=== PATIENT | female | born 1970 | race African-American/Black ===

== ENCOUNTER → 2020-07-28 12:52 | Outpatient (BNVA) | payer MEDICARE, MEDICAID, SELFPAY | PROVIDERS: Visit Provider Physician Assistant | DX: M17.11 Unilateral primary osteoarthritis, right knee (principal) | CPT/HCPCS: 99213 ==

== ENCOUNTER 2020-10-14 14:00 | Outpatient (RCR) | payer MEDICARE, MEDICAID, SELFPAY ==
--- NOTE | 2020-10-26 08:23 | MHC.PT.DC ---
[facility] [place] [facility] [place] [facility] [place] Office [address] Johana Payton 140 [facility] [phone] F: [phone] F: [phone] F: [phone] F: [phone] Physical Therapy Discharge Report Diagnosis: Primary Osteoarthritis of Right Knee Date of Surgery: Date of Evaluation: 09/09/20 Date of Discharge: 10/26/20 Treatments to Date: 7 Cancellations to Date: 0 No Shows to Date: 0 Discharge Status: Improved Function Patient Elected to Stop Discharge Summary: Pt will be going to [place] for over a month and will continue with HEP there. D/c at this time. Electronically signed by: Miracle Grant PT Please sign and return to therapist. Thank you for your referral.
== END 2020-10-26 08:24 | disposition other institution (70) ==
LOC: HO.PT 14:00
PROVIDERS: Visit Provider Physician Assistant
DX: M17.11 Unilateral primary osteoarthritis, right knee (principal)
CPT/HCPCS: 97035; 97110; 97162

== ENCOUNTER 2020-12-08 14:56 | Outpatient (REF) | payer MEDICARE, MEDICAID, SELFPAY | END 2020-12-08 14:57 | disposition home or self-care (01) | LOC: HO.LAB 14:56 | PROVIDERS: Visit Provider Internal Medicine | DX: Z20.822 Contact with and (suspected) exposure to COVID-19 (principal) | CPT/HCPCS: 36415; C9803; U0003; U0005 ==

== ENCOUNTER 2021-03-13 10:02 | Outpatient (REF) | payer MEDICARE, MEDICAID, SELFPAY ==
--- NOTE | ~2021-03-13 | MM_ITS ---
EXAMINATION: MM SCREENING DIGITAL BREAST TOMOSYNTHESIS, BILATERAL CLINICAL INFORMATION: Screening. Asymptomatic. The lifetime risk of breast cancer based on the Tyrer-Cuzick Model is 9%. COMPARISON: Mammography: 12/18/2018, 07/11/2016 TECHNIQUE: Digital breast tomosynthesis is performed in both the craniocaudal and mediolateral oblique views along with computer-aided detection (CAD). Synthesized 2D images are generated from the tomosynthesis. Additional exaggerated right CC view is provided. FINDINGS: There are scattered areas of fibroglandular density (ACR BI-RADS breast composition Category b). There are no significant masses, abnormal calcifications, or other abnormalities. Breast tissue composition borders on predominantly fatty. The axilla and skin contours are unremarkable. MM/MM tomosynthesis screening BI IMPRESSION: No mammographic evidence of malignancy. ASSESSMENT: BI-RADS 1: Negative RECOMMENDATION: Routine annual mammography screening. This patient's information was entered into a reminder system with a target due date for their next mammogram.
== END 2021-03-13 10:03 | disposition home or self-care (01) ==
LOC: HO.MAMMO 10:02
PROVIDERS: Visit Provider Internal Medicine
DX: Z12.31 Encounter for screening mammogram for malignant neoplasm of breast (principal)
CPT/HCPCS: 77063; 77067

== ENCOUNTER 2021-04-03 12:04 | Emergency (ER) | payer MEDICARE, MEDICAID, SELFPAY ==
--- NOTE | ~2021-04-03 | CT_ITS ---
EXAMINATION: CT ABDOMEN AND PELVIS WITH CONTRAST CLINICAL INFORMATION: Right lower quadrant pain, nausea and vomiting COMPARISON: None TECHNIQUE: Multidetector volumetric images were obtained from the superior aspect of the liver through the pubic symphysis following administration 85 mL of Omnipaque 350 intravenous contrast. Sagittal and coronal reformatted images were obtained on the technologist's workstation. Oral contrast: Yes This CT examination was performed using dose optimization techniques as appropriate, variously including the following: *Automated exposure control *Adjustment of mA and/or kV according to patient size (this includes techniques or standardized protocols for targeted exams where dose is matched to indication/reason for exam; i.e. extremities or head) *Use of iterative reconstruction technique DLP: 792 mGy-cm FINDINGS: LUNG BASES: The visualized lung bases are clear. There is a trace pericardial effusion or thickening. LIVER, GALLBLADDER, AND BILIARY TREE: The liver is normal in size, shape, and attenuation. There are several low-attenuation liver lesions probably representing cysts. The largest is a bilobed 2 cm cyst in the dome of the liver. The gallbladder is unremarkable. There is no biliary duct dilatation. PANCREAS: Unremarkable. SPLEEN: Unremarkable. ADRENAL GLANDS: Unremarkable. KIDNEYS AND URETERS: There is mild right-sided hydronephrosis and ureteral dilatation. The right ureter is dilated down to the bladder. There is question of a tiny 1 mm right UVJ stone for example axial image 648 series 4 and coronal reconstructed image 53 and sagittal reconstructed image 78. There is stranding of the right perinephric fat. There are asymmetric nephrograms. Differential would include backflow of urine related to obstruction and infection/pyelonephritis. The left kidney is unremarkable. BLADDER: Unremarkable. GASTROINTESTINAL TRACT: The small and large bowel are unremarkable. The appendix is unremarkable. ABDOMINAL WALL: No significant hernia is appreciated. LYMPH NODES: Normal. VASCULAR: Unremarkable. PELVIC VISCERA: Unremarkable. OSSEOUS STRUCTURES: Unremarkable. CT/CT abdomen pelvis w con IMPRESSION: Mild right hydronephrosis and ureteral dilatation from question mall 1 mm right UVJ stone. Stranding of the right perinephric fat and asymmetric nephrograms. Differential would include backflow of urine related to obstruction and infection/pyelonephritis. Clinical correlation recommended. Liver cysts.
[2021-04-03 12:16] VITALS: BP 128/80; PULSE 96; RESP 16; TEMP 36.6; O2SAT 100
--- NOTE | 2021-04-03 14:02 | ED_ITS ---
HPI - Abdominal Pain General Chief Complaint: Abdominal Pain Stated Complaint: abd pain Time Seen by Provider: 04/03/21 12:49 Source: patient Mode of arrival: ambulatory Limitations: no limitations History of Present Illness HPI narrative: 50-year-old female with a past medical history of anxiety disorder, depression, bipolar and osteoarthritis presenting to the ED with complaints of sudden onset of nausea/vomiting with right lower quadrant abdominal pain after she drank some orange juice prior to arrival. Denies any fevers, dizziness, blood in her emesis, chest pain or shortness of breath, paresthesias, radiation of the abdominal pain, back pain, dysuria, hematuria, abnormal vaginal discharge, recent travel or sick contacts or possible bad food exposure. MD elicited complaint: abdominal pain Pertinent past history: none Onset (ago): minute(s) (Prior to arrival) Pain Consistency: constant Location: RLQ Severity: moderate Quality: aching Radiation: none Migration to: no migration Exacerbating factors: nothing Relieving factors: nothing Associated symptoms: nausea and vomiting Related Data Previous Rx's Medication Instructions Recorded naproxen 500 mg tablet 500 mg PO BID #1 tab 07/28/20 leg brace #1 ea 07/30/20 silver sulfadiazine 1 % topical 1 appl TOPICAL BID PRN #50 g 10/13/20 cream acetaminophen [Tylenol Extra 1,000 mg PO QID PRN #14 tab 04/03/21 Strength] cefdinir 300 mg PO BID 7 Days #14 cap 04/03/21 ibuprofen 800 mg PO Q8H PRN #14 tab 04/03/21 ondansetron HCl [Zofran] 4 mg PO Q8H PRN #14 tab 04/03/21 oxycodone 5 mg PO BID PRN #10 tab 04/03/21 tamsulosin [Flomax] 0.4 mg PO DAILY 5 Days #5 cap 04/03/21 Allergies Allergy/AdvReac Type Severity Reaction Status Date / Time No Known Allergies Allergy Verified 07/28/20 13:00 Review of Systems Review of Systems Constitutional : No Weight loss, No Fever, No Chills, No Night Sweats, No Fatigue, NoMalaise ENT/Mouth: No ear pain, No sore throat, No Difficulty swallowing Cardiovascular : No Chest Pain, No SOB, No Dyspnea on Exertion, No Orthopnea, NoEdema, No Palpitations Respiratory : No Cough, No Sputum, No Wheezing, No Dyspnea Gastrointestinal : Positive nausea/vomiting/abdominal pain, No Diarrhea, No blood streaked emesis, No coffee-ground emesis, No gross hematemesis, No blood streak stool, No gross hematochezia, No Melena Genitourinary : No irregular bleeding, No Dysuria, No Urinary Frequency, No Hematuria,No Urinary Incontinence, No Urgency, No Flank Pain Musculoskeletal : No joint pain, No Myalgias, No Joint Swelling Skin : No Skin Lesions, No rash Neuro : No Weakness, No Numbness, No Paresthesias, No Loss of Consciousness, NoDizziness, No Headache Psych : No Social Issues, Heme/Lymph: No Bruising, No Bleeding,No Lymphadenopathy Endocrine : No Polyuria, No Polydipsia, No Temperature Intolerance Yes all other systems are reviewed and are negative Physical Exam Vital Signs: Vital Signs: Last Vital Signs Temp 98 F 04/03/21 12:16 Pulse 96 04/03/21 12:16 Resp 16 04/03/21 12:16 BP 128/80 04/03/21 12:16 Pulse Ox 100 04/03/21 12:16 Body Mass Index 0.0 vital signs have been reviewed as normal and appeared to be correct. Blood pressure normal. Heart rate normal. Respiration rate normal. Temperature normal. Oxygen saturation normal. Appearance: Alert. Oriented X3. No acute distress. Head: Normal external exam. Normocephalic. Eyes: PERRLA. EOMI. Conjunctiva and sclera normal. Eyelids normal. ENT: Pharynx normal. Uvula midline. Moist mucous membranes. Neck: Normal inspection. Neck supple. FROM. No adenopathy. No meningeal signs. CVS: Normal heart rate and rhythm. Heart sound normal. No murmurs noted. Pulses normal throughout. Respiratory: No respiratory distress. Painless inspiration. Breath sounds normal. No wheezes/rales/rhonchi noted. Chest nontender. No accessory muscle usage noted or decreased air movement noted. Abdomen: Soft and mild tenderness to palpation to right lower quadrant. Nondistended. No guarding. No rigidity. Bowel sounds normal in all 4 quadrants. No distention noted. No organomegaly noted. No visible injury noted. No rebound tenderness. Negative Rovsing sign. Negative obturator's sign. Negative psoas sign. Negative Parker sign. Back: No CVA tenderness. Full range of motion noted. Skin: Skin warm and dry. Normal skin color. Normal skin turgor. No ra shes/lesions/lacerations noted. Extremities: Extremities exhibit normal range of motion. Extremities nontender. Neuro: Oriented X 3. No motor deficit. No sensory deficit. Reflexes normal. Normal steady gait. Course Course Course Narrative: 13:30pm - 50-year-old female with a past medical history of anxiety disorder, depression, bipolar and osteoarthritis presenting to the ED with complaints of sudden onset of nausea/vomiting with right lower quadrant abdominal pain after she drank some orange juice prior to arrival. Plan: Labs, UA, CT scan of abdomen pelvis with IV contrast. Provide a L IV fluids, 30 mg of Toradol and 4 mg of Zofran and re-evaluate Reevaluation(s) Reevaluation #1: - labs returned all within normal limits. - CT scan abdomen and pelvis revealed mild right hydronephrosis and ureteral dilation from questioning small 1 mm right UVJ stone. Stranding of right perinephric fat and asymmetric nephrograms. Differential would include backflow of urine related to obstruction and infection/pyelonephritis. Clinical correlation recommended. Liver cysts. - therefore sent the patient to the bathroom to give me a urine then will consult with Urology based on urine culture Time: 15:48 Reevaluation #2: - UA with +2 leukocytes therefore consulted with Dr. Thakkar and he recommended sending the patient home with antibiotics and symptomatic tx along with Flomax instructions follow up as outpatient and to return if any new or worsening symptoms. Patient understands and agrees with this plan. Time: 16:53 MDM - Abdominal Pain Medical Records Attestation: I reviewed the patient's medical records. Lab Data Attestation: I reviewed the patient's lab results. Result diagrams: 04/03/21 14:13 04/03/21 14:13 Labs: Lab Results 04/03/21 04/03/21 04/03/21 Range/Units 14:13 14:13 14:13 WBC 7.3 (4.8-10.8) X10*3/uL RBC 4.66 (4.20-5.50) X10*6/uL Hgb 12.4 (12.0-16.0) g/dl Hct 38.7 (37-47) % MCV 83.0 (80-98) fL MCH 26.6 L (27.0-33.0) pg MCHC 32.0 (31.0-35.0) g/dl RDW 13.8 (11.0-16.0) % Plt Count 285 (160-400) X10*3/uL MPV 9.4 (9.4-12.3) fL Immature Gran % (Auto) 0.4 (0.0-0.4) % Neut % (Auto) 76.2 H (45-73) % Lymph % (Auto) 17.7 L (20-40) % [place] % (Auto) 5.5 (2-11) % Eos % (Auto) 0.1 (0-4) % Baso % (Auto) 0.1 (0-2) % Lymph # (Auto) 1.3 (1.2-4.9) X10*3/uL [place] # (Auto) 0.4 (0.1-1.2) X10*3/uL Eos # (Auto) 0.0 (0.0-0.4) X10*3/uL Baso # (Auto) 0.0 (0.0-0.2) X10*3/uL Abs Immat Gran (auto) 0.03 (0.00-0.03) X10*3/uL Absolute Neuts (auto) 5.5 (2.0-8.3) X10*3/uL Absolute Nucleated RBC 0.000 (0.0-0.012) X10*3/uL Nucleated RBC % (auto) 0.0 (0.0-0.2) /100WBC PT 11.0 (10.8-13.0) SEC INR 0.9 (0.9-1.1) Sodium 143 (135-145) mmol/L Potassium 4.2 (3.3-5.1) mmol/L Chloride 105 (96-108) mmol/L Carbon Dioxide 32 H (22-29) mmol/L Anion Gap 10 L (12-20) BUN 14 (9-16) mg/dL Creatinine 1.07 (0.5-1.4) mg/dL Estim Creat Clear Calc 91.7 Estimated GFR 54 Random Glucose 87 (60-115) mg/dL Calcium 9.2 (8.4-10.2) mg/dL Magnesium 2.3 (1.6-2.6) mg/dL Total Bilirubin 0.3 (0.0-1.0) mg/dL AST 16 (5-31) U/L ALT 10 (0-31) U/L Alkaline Phosphatase 71 (39-117) U/L Total Protein 7.1 (6.5-8.0) g/dL Albumin 4.4 (3.5-5.0) g/dL Urine Color Urine Appearance Urine pH (5.0-8.0) Ur Specific [place] (1.005-1.025) Urine Protein (NEG-TRACE) MG/DL Urine Glucose (UA) (NEG) MG/DL Urine Ketones (NEG) MG/DL Urine Blood (NEG) Urine Nitrite (NEG) Ur Leukocyte Esterase (NEG) 04/03/21 Range/Units 16:03 WBC (4.8-10.8) X10*3/uL RBC (4.20-5.50) X10*6/uL Hgb (12.0-16.0) g/dl Hct (37-47) % MCV (80-98) fL MCH (27.0-33.0) pg MCHC (31.0-35.0) g/dl RDW (11.0-16.0) % Plt Count (160-400) X10*3/uL MPV (9.4-12.3) fL Immature Gran % (Auto) (0.0-0.4) % Neut % (Auto) (45-73) % Lymph % (Auto) (20-40) % [place] % (Auto) (2-11) % Eos % (Auto) (0-4) % Baso % (Auto) (0-2) % Lymph # (Auto) (1.2-4.9) X10*3/uL [place] # (Auto) (0.1-1.2) X10*3/uL Eos # (Auto) (0.0-0.4) X10*3/uL Baso # (Auto) (0.0-0.2) X10*3/uL Abs Immat Gran (auto) (0.00-0.03) X10*3/uL Absolute Neuts (auto) (2.0-8.3) X10*3/uL Absolute Nucleated RBC (0.0-0.012) X10*3/uL Nucleated RBC % (auto) (0.0-0.2) /100WBC PT (10.8-13.0) SEC INR (0.9-1.1) Sodium (135-145) mmol/L Potassium (3.3-5.1) mmol/L Chloride (96-108) mmol/L Carbon Dioxide (22-29) mmol/L Anion Gap (12-20) BUN (9-16) mg/dL Creatinine (0.5-1.4) mg/dL Estim Creat Clear Calc Estimated GFR Random Glucose (60-115) mg/dL Calcium (8.4-10.2) mg/dL Magnesium (1.6-2.6) mg/dL Total Bilirubin (0.0-1.0) mg/dL AST (5-31) U/L ALT (0-31) U/L Alkaline Phosphatase (39-117) U/L Total Protein (6.5-8.0) g/dL Albumin (3.5-5.0) g/dL Urine Color STRAW Urine Appearance CLEAR Urine pH 7.0 (5.0-8.0) Ur Specific [place] 1.010 (1.005-1.025) Urine Protein NEG (NEG-TRACE) MG/DL Urine Glucose (UA) NEG (NEG) MG/DL Urine Ketones NEG (NEG) MG/DL Urine Blood NEG (NEG) Urine Nitrite NEG (NEG) Ur Leukocyte Esterase 2+ H (NEG) Imaging Data CT scan of abdomen pelvis with IV contrast: Attestation: I personally reviewed and interpreted this imaging study as follows: Radiologist's impression: FINDINGS: LUNG BASES: The visualized lung bases are clear. There is a trace pericardial effusion or thickening. LIVER, GALLBLADDER, AND BILIARY TREE: The liver is normal in size, shape, and attenuation. There are several low-attenuation liver lesions probably representing cysts. The largest is a bilobed 2 cm cyst in the dome of the liver. The gallbladder is unremarkable. There is no biliary duct dilatation. PANCREAS: Unremarkable. SPLEEN: Unremarkable. ADRENAL GLANDS: Unremarkable. KIDNEYS AND URETERS: There is mild right-sided hydronephrosis and ureteral dilatation. The right ureter is dilated down to the bladder. There is question of a tiny 1 mm right UVJ stone for example axial image 648 series 4 and coronal reconstructed image 53 and sagittal reconstructed image 78. There is stranding of the right perinephric fat. There are asymmetric nephrograms. Differential would include backflow of urine related to obstruction and infection/pyelonephritis. The left kidney is unremarkable. BLADDER: Unremarkable. GASTROINTESTINAL TRACT: The small and large bowel are unremarkable. The appendix is unremarkable. ABDOMINAL WALL: No significant hernia is appreciated. LYMPH NODES: Normal. VASCULAR: Unremarkable. PELVIC VISCERA: Unremarkable. OSSEOUS STRUCTURES: Unremarkable. CT/CT abdomen pelvis w con IMPRESSION: Mild right hydronephrosis and ureteral dilatation from question mall 1 mm right UVJ stone. Stranding of the right perinephric fat and asymmetric nephrograms. Differential would include backflow of urine related to obstruction and infection/pyelonephritis. Clinical correlation recommended. Liver cysts. Discharge Plan Discharge Clinical Impression: UTI (urinary tract infection), Urolithiasis, Hydronephrosis, Benign liver cyst Patient Disposition: Home, Self-Care Instructions: Hydronephrosis (ED), Ureteral Stones (ED), Urinary Tract Infection in Older Adults (ED) Prescriptions: New ondansetron HCl [Zofran] 4 mg tablet 4 mg PO Q8H PRN (Reason: nausea and vomiting) Qty: 14 RF: 0 tamsulosin [Flomax] 0.4 mg capsule 0.4 mg PO DAILY 5 Days Qty: 5 RF: 0 cefdinir 300 mg capsule 300 mg PO BID 7 Days Qty: 14 RF: 0 ibuprofen 800 mg tablet 800 mg PO Q8H PRN (Reason: pain) Qty: 14 RF: 0 oxycodone 5 mg tablet 5 mg PO BID PRN (Reason: pain) Qty: 10 RF: 0 acetaminophen [Tylenol Extra Strength] 500 mg tablet 1,000 mg PO QID PRN (Reason: fever or pain) Qty: 14 RF: 0 No Action (DME) Knee Support Brace Misc See Rx Instructions .ROUTE .MEDSUPPLY Qty: 1 RF: 0 silver sulfadiazine 1 % cream 1 appl topical BID PRN (Reason: wound healing) Qty: 50 RF: 1 naproxen 500 mg tablet 500 mg PO BID Qty: 1 RF: 0 Referrals: Allen Thakkar III, MD [Physician] - 2 days Allen Thakkar III, MD [Physician] - 2 days Print Language: Nepali [facility] Past Medical History Attestation statement: The following information was validated with the patient. Medical History Head injury Social History Social History Alcohol intake: never Patient Tobacco Use Status: Never used Tobacco Use of substances other than those prescribed or required for medical reasons: No Advance Directives: Yes Advance Directives Information Provided: Yes Advance Directives on File: No Patient : No
[2021-04-03 14:18] LABS: Basophils Percent Auto 0.1 % (0-2); Eosinophils Percent Auto 0.1 % (0-4); Hematocrit 38.7 % (37-47); Hemoglobin 12.4 g/dl (12.0-16.0); Imm Gran Abs Auto 0.03 X10*3/uL (0.00-0.03); Imm Gran Pct Auto 0.4 % (0.0-0.4); Lymphocytes Absolute Auto 1.3 X10*3/uL (1.2-4.9); Lymphocytes Percent Auto 17.7 % (20-40); MANUAL DIFF FLAG NO; Mean Corpuscular Hemoglobin 26.6 pg (27.0-33.0); Mean Platelet Volume 9.4 fL (9.4-12.3); Monocytes Absolute Auto 0.4 X10*3/uL (0.1-1.2); Monocytes Percent Auto 5.5 % (2-11); Neutrophils Absolute Auto 5.5 X10*3/uL (2.0-8.3); Neutrophils Percent Auto 76.2 % (45-73); Platelet Count 285 X10*3/uL (160-400); Red Blood Count 4.66 X10*6/uL (4.20-5.50); Red Cell Distribution Width 13.8 % (11.0-16.0); White Blood Count 7.3 X10*3/uL (4.8-10.8)
[2021-04-03] MEDS: 0.9 % Sodium Chloride 1,000 ML 999 ML IVCONT (14:19)
[2021-04-03] MEDS: ondansetron HCL 4 MG/2 ML VIAL IVPUSH (14:21)
[2021-04-03] MEDS: Ketorolac Tromethamine 30 MG/ML VIAL IVPUSH (14:22)
[2021-04-03 14:24] LABS: INTERNATIONAL NORM RATIO 0.9 (0.9-1.1)
[2021-04-03 14:47] LABS: Alanine Aminotransferase 10 U/L (0-31); Albumin Level 4.4 g/dL (3.5-5.0); Alkaline Phosphatase 71 U/L (39-117); Anion Gap 10 (12-20); Aspartate Amino Transferase 16 U/L (5-31); Bilirubin Total 0.3 mg/dL (0.0-1.0); Blood Urea Nitrogen 14 mg/dL (9-16); Calcium 9.2 mg/dL (8.4-10.2); Carbon Dioxide 32 mmol/L (22-29); Chloride 105 mmol/L (96-108); Creatinine Clr Calc Pharmacy 91.7; Estimated Glomerular Filt Rate 54; Glucose Random 87 mg/dL (60-115); Magnesium 2.3 mg/dL (1.6-2.6); Potassium 4.2 mmol/L (3.3-5.1); Sodium 143 mmol/L (135-145); Total Protein 7.1 g/dL (6.5-8.0)
[2021-04-03] MEDS: iohexoL 350 MG/ML 100 ML INFUS..BTL IV (15:07)
[2021-04-03] MEDS: Metoclopramide HCl 10 MG/2 ML VIAL IVPUSH (15:26)
[2021-04-03] MEDS: Morphine Sulfate 4 MG/ML CARTRIDGE IVPUSH (15:26)
[2021-04-03 16:20] LABS: Glucose Urine UA NEG (NEG); Leukocyte Esterase Urine 2+ (NEG); Nitrite Urine NEG (NEG); UACC Culture Trigger YES; Urine Blood NEG (NEG); Urine Ketones NEG (NEG); Urine Protein NEG (NEG-TRACE)
[2021-04-03 16:27] LABS: Appearance Urine CLEAR; Color Urine STRAW
[2021-04-03] MEDS: Tamsulosin HCL 0.4 MG CAPSULE 0.8 MG PO (16:31)
[2021-04-03] MEDS: methylPREDNISolone Sod Succ 125 MG/2 ML VIAL IVPUSH (16:31)
[2021-04-03 17:02] LABS: Bacteria Urine TRACE /LPF; RBC Urine 0-2 /HPF (0); Squamous Epithelial Cell Urine 1+ /LPF
[2021-04-03 17:03] LABS: Mucus Urine 1+ /LPF
== END 2021-04-03 17:13 | disposition home or self-care (01) ==
PROVIDERS: Physician Assistant Medical; Emergency Provider Emergency Medicine
DX: N39.0 Urinary tract infection, site not specified (principal); N13.2 Hydronephrosis with renal and ureteral calculous obstruction; K76.89 Other specified diseases of liver
CPT/HCPCS: 36415; 74177; 80053; 81001; 81003; 83735; 85025; 85610; 87086; 96361; 96374; 96375; 99284; J1885; J2270; J2405; J2765; J2930; Q9967

== ENCOUNTER → 2021-04-09 08:52 | Outpatient (BNVA) | payer MEDICARE, MEDICAID, SELFPAY | PROVIDERS: Visit Provider Urology | DX: N20.0 Calculus of kidney (principal) | CPT/HCPCS: 99202 ==

== ENCOUNTER 2021-04-16 08:02 | Outpatient (REF) | payer MEDICARE, MEDICAID, SELFPAY ==
--- NOTE | ~2021-04-16 | XR_ITS ---
EXAMINATION: XR KNEE, RIGHT CLINICAL INFORMATION: Pain in right knee COMPARISON: 07/05/2020 TECHNIQUE: Four views of the right knee. FINDINGS: No fracture, dislocation, or joint effusion. Mild medial compartment joint space narrowing and medial marginal osteophytosis. Tibial spine hypertrophy. XR/XR knee RT 4V IMPRESSION: Mild osteoarthritis of the medial compartment.
== END 2021-04-16 08:03 | disposition home or self-care (01) ==
LOC: HO.XRAY 08:02
PROVIDERS: Absent Provider Registered Nurse; PCP Registered Nurse; Visit Provider Emergency Medicine
DX: M25.561 Pain in right knee (principal)
CPT/HCPCS: 73564

== ENCOUNTER 2021-04-18 09:34 | Emergency (ER) | payer MEDICARE, MEDICAID, SELFPAY ==
[2021-04-18 09:43] VITALS: BP 148/83; PULSE 81; RESP 18; TEMP 36.6; O2SAT 100; BMI 33.4
--- NOTE | 2021-04-18 10:43 | ED.NECK ---
HPI - Neck Pain/Injury General Chief Complaint: Neck Pain/Injury Stated Complaint: Neck Pain Time Seen by Provider: 04/18/21 10:18 History of Present Illness HPI Narrative: patient developed pain in the left side of her neck over the past week with no injury, no numbness weakness or tingling no difficulty breathing or swallowing no changes to bowel or bladder no skin rash Related Data Home Medications Medication Instructions Recorded Confirmed benztropine 1 mg tablet 1 mg PO BID 04/09/21 trazodone 150 mg tablet 150 mg PO BEDTIME 04/09/21 ziprasidone HCl 60 mg capsule 60 mg PO BID 04/09/21 Previous Rx's Medication Instructions Recorded naproxen 500 mg tablet 500 mg PO BID #1 tab 07/28/20 leg brace #1 ea 07/30/20 silver sulfadiazine 1 % topical 1 appl TOPICAL BID PRN #50 g 10/13/20 cream acetaminophen [Tylenol Extra 1,000 mg PO QID PRN #14 tab 04/03/21 Strength] cefdinir 300 mg PO BID 7 Days #14 cap 04/03/21 ibuprofen 800 mg PO Q8H PRN #14 tab 04/03/21 ondansetron HCl [Zofran] 4 mg PO Q8H PRN #14 tab 04/03/21 oxycodone 5 mg PO BID PRN #10 tab 04/03/21 tamsulosin [Flomax] 0.4 mg PO DAILY 5 Days #5 cap 04/03/21 cyclobenzaprine 5 mg PO TID PRN #14 tab 04/18/21 ibuprofen 600 mg PO Q6H PRN #20 tab 04/18/21 oxycodone-acetaminophen [Percocet] 1 tab PO Q4-6H PRN #10 tab 04/18/21 oxycodone-acetaminophen [Percocet] 1 tab PO Q4-6H PRN #10 tab 04/18/21 Allergies Allergy/AdvReac Type Severity Reaction Status Date / Time No Known Allergies Allergy Verified 04/09/21 08:54 Review of Systems Review of Systems: positive for left-sided neck pain worse with movement Negatives are no fever no chills no dizziness no weakness no fainting no feeling faint no headache no numbness weakness or tingling no chest pain no shortness of breath no difficulty breathing or swallowing no nausea or vomiting no radiation of pain no skin rash Yes all other systems are reviewed and are negative [facility] Past Medical History Source: nursing notes reviewed Medical History Head injury Social History Social History Alcohol intake: never Patient Tobacco Use Status: Never used Tobacco Advance Directives: Yes Advance Directives Information Provided: Yes Advance Directives on File: No Physical Exam Vital Signs: Vital Signs: Last Vital Signs Temp 97.8 F 04/18/21 09:43 Pulse 81 04/18/21 09:43 Resp 18 04/18/21 09:43 BP 148/83 H 04/18/21 09:43 Pulse Ox 100 04/18/21 09:43 Body Mass Index 33.4 general appearance no acute distress, cooperative The head is normocephalic atraumatic The neck has left-sided soft tissue tenderness and some trapezius tenderness, there is no midline tenderness, the skin is normal no redness no rash, pain is reproduced mostly with lateral movement and range of motion is full but uncomfortable Chest is clear to auscultation bilateral No chest wall tenderness Extremities full range of motion x4 Skin no rash Neuro trauma nurse strength bilateral hands is 5/5 and symmetrical, gait and balance are normal, sensation in bilateral upper extremities is symmetric and full and equal Course Course Course Narrative: patient is treated for atraumatic musculoskeletal neck pain and will follow with primary doctor as needed Discharge Plan Discharge Clinical Impression: Neck pain Patient Disposition: Home, Self-Care Additional Instructions: episodes of neck pain usually resolve on their own in 1 or 2 weeks If not improving by next week follow with primary doctor for further evaluation We are treating with pain killer and muscle relaxer so you can be more comfortable Return any time for weakness severe pain fever any worse condition or any concerns Prescriptions: New cyclobenzaprine 5 mg tablet 5 mg PO TID PRN (Reason: muscle spasm) Qty: 14 RF: 0 ibuprofen 600 mg tablet 600 mg PO Q6H PRN (Reason: pain) Qty: 20 RF: 0 oxycodone-acetaminophen [Percocet] 5-325 mg tablet 1 tab PO Q4-6H PRN (Reason: pain) Qty: 10 RF: 0 oxycodone-acetaminophen [Percocet] 5-325 mg tablet 1 tab PO Q4-6H PRN (Reason: pain) Qty: 10 RF: 0 No Action (DME) Knee Support Brace Misc See Rx Instructions .ROUTE .MEDSUPPLY Qty: 1 RF: 0 silver sulfadiazine 1 % cream 1 appl topical BID PRN (Reason: wound healing) Qty: 50 RF: 1 ondansetron HCl [Zofran] 4 mg tablet 4 mg PO Q8H PRN (Reason: nausea and vomiting) Qty: 14 RF: 0 tamsulosin [Flomax] 0.4 mg capsule 0.4 mg PO DAILY 5 Days Qty: 5 RF: 0 cefdinir 300 mg capsule 300 mg PO BID 7 Days Qty: 14 RF: 0 ibuprofen 800 mg tablet 800 mg PO Q8H PRN (Reason: pain) Qty: 14 RF: 0 oxycodone 5 mg tablet 5 mg PO BID PRN (Reason: pain) Qty: 10 RF: 0 acetaminophen [Tylenol Extra Strength] 500 mg tablet 1,000 mg PO QID PRN (Reason: fever or pain) Qty: 14 RF: 0 naproxen 500 mg tablet 500 mg PO BID Qty: 1 RF: 0 Interventions: ED Discharge Assessment Last Done: 04/18/21 10:55 Discharge Date/Time: 04/18/21 11:05
[2021-04-18] MEDS: Ketorolac Tromethamine 30 MG/ML VIAL IM (10:59)
== END 2021-04-18 11:05 | disposition home or self-care (01) ==
PROVIDERS: Emergency Provider Emergency Medicine; PCP Registered Nurse
DX: M54.2 Cervicalgia (principal)
CPT/HCPCS: 96372; 99283; 99284; J1885

== ENCOUNTER 2021-07-30 07:47 | Outpatient (REF) | payer MEDICARE, MEDICAID, SELFPAY ==
--- NOTE | ~2021-07-30 | US_ITS ---
EXAMINATION: US RETROPERITONEAL LIMITED (RENAL ONLY) CLINICAL INFORMATION: Calculus of kidney. COMPARISON: CT abdomen and pelvis 04/03/2021 TECHNIQUE: Real-time imaging of the kidneys. FINDINGS: RIGHT KIDNEY: 11.0 x 4.8 x 6.2 cm (SAG x AP x TRV). The kidney is normal in size, contour, and echogenicity. Renal cortical thickness is normal. No calculi or focal parenchymal lesions. No hydronephrosis. LEFT KIDNEY: 9.3 x 5.1 x 4.3 cm (SAG x AP x TRV). The kidney is normal in size, contour, and echogenicity. Renal cortical thickness is normal. No calculi or focal parenchymal lesions. No hydronephrosis. US/US renal BI IMPRESSION: Unremarkable renal ultrasound.
== END 2021-07-30 07:48 | disposition home or self-care (01) ==
LOC: HO.US 07:47
PROVIDERS: Visit Provider Urology
DX: N20.0 Calculus of kidney (principal)
CPT/HCPCS: 76775

== ENCOUNTER → 2021-08-06 08:09 | Outpatient (BNVA) | payer MEDICARE, MEDICAID, SELFPAY | DX: N20.2 Calculus of kidney with calculus of ureter (principal) | CPT/HCPCS: 99212 ==

== ENCOUNTER 2022-06-25 08:35 | Outpatient (REF) | payer MEDICARE, MEDICAID, SELFPAY ==
--- NOTE | ~2022-06-25 | MM_ITS ---
EXAMINATION: MM SCREENING DIGITAL BREAST TOMOSYNTHESIS, BILATERAL CLINICAL INFORMATION: Screening. Asymptomatic. The lifetime risk of breast cancer based on the Tyrer-Cuzick Model is 11%. COMPARISON: Mammography: 03/13/2021, 12/18/2018, 07/11/2016 TECHNIQUE: Digital breast tomosynthesis is performed in both the craniocaudal and mediolateral oblique views along with computer-aided detection (CAD). Synthesized 2D images are generated from the tomosynthesis. FINDINGS: There are scattered areas of fibroglandular density (ACR BI-RADS breast composition Category b). There are no significant masses, abnormal calcifications, or other abnormalities. Parenchymal pattern is similar to prior studies. Breast tissue composition borders on predominantly fatty. There is no developing density or architectural abnormality. The axilla and skin contours are unremarkable. No significant changes. MM/MM tomosynthesis screening BI IMPRESSION: No mammographic evidence of malignancy. ASSESSMENT: BI-RADS 1: Negative RECOMMENDATION: Routine annual mammography screening. This patient's information was entered into a reminder system with a target due date for their next mammogram.
== END 2022-06-25 08:36 | disposition home or self-care (01) ==
LOC: HO.MAMMO 08:35
PROVIDERS: Visit Provider Registered Nurse
DX: Z12.31 Encounter for screening mammogram for malignant neoplasm of breast (principal)
CPT/HCPCS: 77063; 77067

== ENCOUNTER 2022-09-16 13:32 | Outpatient (REF) | payer MEDICARE, MEDICAID, SELFPAY ==
--- NOTE | ~2022-09-16 | US_ITS ---
EXAMINATION: US RETROPERITONEAL LIMITED (RENAL ONLY) CLINICAL INFORMATION: Calculus of kidney. COMPARISON: Renal ultrasound 07/30/2021. CT abdomen and pelvis 04/03/2021. TECHNIQUE: Real-time imaging of the kidneys. Left kidney difficult to visualize. FINDINGS: RIGHT KIDNEY: 11.7 x 4.2 x 4.8 cm (SAG x AP x TRV). The kidney is normal in size, contour, and echogenicity. Renal cortical thickness is normal. No calculi or focal parenchymal lesions. No hydronephrosis. LEFT KIDNEY: 8.9 x 5.1 x 5.4 cm (SAG x AP x TRV). The kidney is smaller than the right and normal in contour and echogenicity. Renal cortical thickness is normal. No calculi or focal parenchymal lesions. No hydronephrosis. US/US renal BI IMPRESSION: The left kidney is difficult to visualize and is smaller than the right. No stone seen.
== END 2022-09-16 13:33 | disposition home or self-care (01) ==
LOC: HO.US 13:32
DX: N20.0 Calculus of kidney (principal)
CPT/HCPCS: 76775

== ENCOUNTER 2023-04-25 14:13 | Outpatient (REF) | payer MEDICARE, MEDICAID, SELFPAY ==
--- NOTE | ~2023-04-25 | XR_ITS ---
EXAMINATION: XR HAND, RIGHT CLINICAL INFORMATION: Bone on palmar aspect of hand noticed a month ago. COMPARISON: None available. TECHNIQUE: PA, lateral, and oblique views of the right hand. FINDINGS: The no evidence for acute fracture or dislocation. Chronic ulnar styloid fracture. Degenerative changes at the radiocarpal joint. No bony erosions. Mild degenerative change at the first carpometacarpal joint. No abnormal calcifications or foreign bodies. XR/XR hand RT min 3V IMPRESSION: 1. No evidence for acute fracture or dislocation. 2. Chronic ulnar styloid fracture. 3. Mild degenerative changes in the wrist.
== END 2023-04-25 14:14 | disposition home or self-care (01) ==
LOC: HO.HHCX 14:13
PROVIDERS: Visit Provider Registered Nurse
DX: R22.31 Localized swelling, mass and lump, right upper limb (principal)
CPT/HCPCS: 73130

== ENCOUNTER 2023-06-05 12:46 | Outpatient (REF) | payer MEDICARE, MEDICAID, SELFPAY ==
--- NOTE | ~2023-06-05 | US_ITS ---
EXAMINATION: Ultrasound extremity nonvascular CLINICAL INFORMATION: Palpable lump palmar side below third digit COMPARISON: Previous right hand x-ray April 2023 TECHNIQUE: Grayscale and color imaging of the soft tissues of the palm of the hand in the area of palpable abnormality at the base of the third finger/level of the third MCP joint is in a linear transducer FINDINGS: There is a superficial slightly complex cyst just deep to the skin in the palmar soft tissues of the hand at the level of the third MCP joint. This has a slightly thickened irregular wall and minimal peripheral vascularity. This is 2 mm deep from the skin surface. Ultrasound appearance is nonspecific. US/US extremity nonvascular sotomayor IMPRESSION: Palpable abnormality corresponds to a complex cyst just deep to the skin. Ultrasound appearance is nonspecific.
== END 2023-06-05 12:47 | disposition home or self-care (01) ==
LOC: HO.US 12:46
PROVIDERS: PCP Registered Nurse; Visit Provider Registered Nurse
DX: R22.31 Localized swelling, mass and lump, right upper limb (principal)
CPT/HCPCS: 76882

== ENCOUNTER 2023-07-01 08:16 | Outpatient (REF) | payer MEDICARE, MEDICAID, SELFPAY | END 2023-07-01 08:17 | disposition home or self-care (01) | LOC: HO.MAMMO 08:16 | PROVIDERS: PCP Registered Nurse; Visit Provider Registered Nurse | DX: Z12.31 Encounter for screening mammogram for malignant neoplasm of breast (principal) | CPT/HCPCS: 77063; 77067 ==

== ENCOUNTER → 2023-07-01 09:00 | Outpatient (BNV) | payer MEDICARE, MEDICAID, SELFPAY | PROVIDERS: PCP Registered Nurse; Visit Provider Radiology Diagnostic Radiology | DX: Z12.31 Encounter for screening mammogram for malignant neoplasm of breast (principal) | CPT/HCPCS: 77063; 77067 ==

== ENCOUNTER 2023-12-06 09:55 | Outpatient (REF) | payer MEDICARE, MEDICAID, SELFPAY ==
[2023-12-06 11:19] LABS: MANUAL DIFF FLAG NO
[2023-12-06 11:28] LABS: Basophils Percent Auto 0.2 % (0-2); Hematocrit 39.1 % (37.0-47.0); Hemoglobin 12.4 g/dl (12.0-16.0); Imm Gran Abs Auto 0.01 X10*3/uL (0.00-0.03); Imm Gran Pct Auto 0.2 % (0.0-0.4); Lymphocytes Absolute Auto 1.6 X10*3/uL (1.2-4.9); Lymphocytes Percent Auto 27.4 % (20-40); Mean Corpuscular HGB Conc 31.7 g/dl (31.0-35.0); Mean Corpuscular Hemoglobin 26.5 pg (27.0-33.0); Mean Corpuscular Volume 83.5 fL (80.0-98.0); Mean Platelet Volume 10.1 fL (9.4-12.3); Monocytes Absolute Auto 0.3 X10*3/uL (0.1-1.2); Monocytes Percent Auto 4.6 % (2-11); Neutrophils Percent Auto 67.6 % (45-73); Platelet Count 327 X10*3/uL (160-400); Red Blood Count 4.68 X10*6/uL (4.20-5.50); Red Cell Distribution Width 13.2 % (11.0-16.0); White Blood Count 5.8 X10*3/uL (4.8-10.8)
[2023-12-06 11:38] LABS: Estimated Average Glucose 100 mg/dL; Hemoglobin A1c % 5.1 % (<6.0)
[2023-12-06 11:58] LABS: Alanine Aminotransferase 11 U/L (0-31); Albumin Level 4.2 g/dL (3.5-5.0); Alkaline Phosphatase 74 U/L (39-117); Anion Gap 11 (12-20); Aspartate Amino Transferase 16 U/L (5-31); Bilirubin Total 0.4 mg/dL (0.0-1.0); Blood Urea Nitrogen 16 mg/dL (9-16); Calcium 8.9 mg/dL (8.4-10.2); Carbon Dioxide 29 mmol/L (22-29); Chloride 105 mmol/L (96-108); Cholesterol 150 mg/dL (<200); Estimated Glomerular Filt Rate > 60; Glucose Random 94 mg/dL (60-115); HDL Cholesterol 68 mg/dL (>40); LDL Cholesterol Calculated 73 mg/dL (<100); Potassium 4.1 mmol/L (3.3-5.1); Sodium 141 mmol/L (135-145); Triglycerides 45 mg/dL (<150)
[2023-12-06 12:08] LABS: HBS Num1 0.35 mIU/mL (0-7.99); HBc Num1 0.19 S/CO (0.00-0.79); HBsAGNum1 0.32 S/CO (0.00-0.99); Hepatitis B Core Antibody Nonreactive (Nonreactive); Hepatitis B Surface Antigen Negative (Negative); ~Hepatitis B Surface Antibody NONREACTIVE (Nonreactive)
== END 2023-12-06 09:56 | disposition home or self-care (01) ==
LOC: HO.HHCL 09:55
PROVIDERS: Visit Provider Registered Nurse
DX: Z00.00 Encounter for general adult medical examination without abnormal findings (principal); Z11.59 Encounter for screening for other viral diseases; Z72.89 Other problems related to lifestyle
CPT/HCPCS: 36415; 80053; 80061; 83036; 84443; 85025; 86704; 86706; 87340

== ENCOUNTER 2024-01-01 13:43 | Emergency (ER) | payer MEDICARE, MEDICAID, SELFPAY ==
--- NOTE | ~2024-01-01 | XR_ITS ---
EXAMINATION: XR KNEE, LEFT CLINICAL INFORMATION: Pain, injury. COMPARISON: None available. TECHNIQUE: Four views of the left knee. FINDINGS: Subtle irregularity along the lateral surface of the medial tibial plateau that is most likely related with sequela of degenerative changes, although an underlying nondisplaced fracture cannot be excluded. No subluxation. Minimal tricompartmental degenerative changes. No osseous erosions or abnormal soft tissue calcifications. No joint effusion. XR/XR knee LT 4V IMPRESSION: Subtle irregularity along the lateral surface of the medial tibial plateau that is most likely related with sequela of degenerative changes, although an underlying nondisplaced fracture cannot be excluded. Recommend correlation with point tenderness and if indicated further characterization with a CT of the left knee without IV contrast.
--- NOTE | ~2024-01-01 | CT_ITS ---
EXAMINATION: CT KNEE WITHOUT CONTRAST, LEFT CLINICAL INFORMATION: Pain. Assess for possible fracture COMPARISON: Plain films earlier today TECHNIQUE: Multiple serial thin slice helical CT scan images through the left knee were obtained. Soft tissue and bony algorithms were evaluated. Coronal and sagittal reformatted images obtained on the technologist workstation. This CT examination was performed using dose optimization techniques as appropriate, variously including the following: *Automated exposure control *Adjustment of mA and/or kV according to patient size (this includes techniques or standardized protocols for targeted exams where dose is matched to indication/reason for exam; i.e. extremities or head) *Use of iterative reconstruction technique DLP: 169 mGy-cm FINDINGS: Moderate size knee joint effusion is present. I do not appreciate any lipohemarthrosis. Tricompartmental degenerative changes are seen with small osteophyte formation in all 3 compartments. There are subchondral sclerosis more so in the medial compartment. Although there are tiny osteophytes present, I do not appreciate any definitive displaced fracture on these images. The abnormality along the medial tibial plateau seen on the x-ray from earlier today likely corresponds with a prominent osteophyte. Mild prepatellar soft tissue swelling. Small Rizo's cyst noted. CT/CT knee LT wo IV con IMPRESSION: Tricompartmental degenerative changes more so in the medial compartment. I do not appreciate any definitive acute fracture or dislocation. There is a moderate knee joint effusion but do not appreciate any lipohemarthrosis.
[2024-01-01 15:20] VITALS: BP 131/71; PULSE 83; RESP 16; TEMP 36.3; O2SAT 97; BMI 36.4
--- NOTE | 2024-01-01 15:32 | ED.GENADULT ---
HPI - General Adult General Chief complaint: Extremity Injury, Lower Stated complaint: l knee pain Time Seen by Provider: 01/01/24 20:11 Related Data Home Medications Medication Instructions Recorded Confirmed benztropine 1 mg tablet 1 mg PO BID 04/09/21 trazodone 150 mg tablet 150 mg PO BEDTIME 04/09/21 ziprasidone HCl 60 mg capsule 60 mg PO BID 04/09/21 Previous Rx's Medication Instructions Recorded leg brace (Knee Support Brace) #1 ea 07/30/20 silver sulfadiazine 1 % topical 1 appl topical BID PRN wound 10/13/20 cream healing #50 grams acetaminophen 500 mg tablet 1,000 mg (2 x 500 mg) PO QID PRN 04/03/21 (Tylenol Extra Strength) fever or pain #14 tabs ondansetron HCl 4 mg tablet 4 mg PO Q8H PRN nausea and 04/03/21 (Zofran) vomiting #14 tabs tamsulosin 0.4 mg capsule (Flomax) 0.4 mg PO DAILY 5 days #5 caps 04/03/21 ibuprofen 600 mg tablet 600 mg PO Q6H PRN pain #20 tabs 04/18/21 oxycodone-acetaminophen 5 mg-325 1 tab PO Q4-6H PRN pain #10 tabs 04/18/21 mg tablet (Percocet) pyridoxine (vitamin B6) 100 mg 100 mg PO DAILY 90 days #90 tabs 07/08/22 tablet naproxen 500 mg tablet 500 mg PO BID PRN pain 7 days #14 01/01/24 tabs prednisone 20 mg tablet 40 mg (2 x 20 mg) PO DAILY 5 days 01/01/24 #10 tabs Allergies Allergy/AdvReac Type Severity Reaction Status Date / Time No Known Allergies Allergy Verified 01/01/24 15:19 [facility] Past Medical History Medical History (Updated 01/01/24 @ 21:18 by EMILY Gutierrez) Traumatic brain injury Vitamin D deficiency Polyp of cervix Obesity Memory impairment History of attempted suicide Chronic low back pain Anatomical narrow angle of eye Amblyopia of left eye Renal and ureteric calculus Head injury Surgical History (Updated 10/26/23 @ 16:29 by ROBIN Randall) H/O section Family History Family History (Updated 10/26/23 @ 16:29 by ROBIN Randall) Mother Hypertension Social History Social History (Updated 10/26/23 @ 16:31 by ROBIN Randall) Household Members: Children Household Members Other:: Lives with adult daughter and fiance Alcohol intake: never Patient Tobacco Use Status: Never used Tobacco Advance Directives: No Advance Directives Information Provided: No Physical Exam ED Vital Signs: Vital Signs - 24 hr 01/01/24 15:20 01/01/24 18:56 01/01/24 22:00 Temperature 97.3 F 98.1 F 0 F L Pulse Rate 83 80 0 L Respiratory Rate 16 20 0 L Blood Pressure 131/71 150/76 H 00/00 L Pulse Oximetry 97 97 Oxygen Delivery Method Room Air Room Air BMI result Body Mass Index 36.4 Course Course Course Narrative: RME performed by Deonna Carmona PA-C. Patient is a 53 year old assigned female at presenting to the emergency department with left knee pain. Detailed physical exam and review of systems are deferred to the bass mechanism maker. Imaging ordered. Patient placed back in the waiting room pending room availability and results. Patient seen and dispositioned by Dr. Bates, please refer to his note. Medications Administered Discontinued Medications Generic Name Dose Route Start Last Admin Trade Name Freq PRN Reason Stop Dose Admin Ketorolac Tromethamine 30 mg 01/01/24 21:01 01/01/24 21:28 Ketorolac Tromethamine 30 Mg/Ml Vial IM 01/01/24 21:02 30 mg ONCE ONE Administration Prednisone 60 mg 01/01/24 21:01 01/01/24 21:29 Prednisone 20 Mg Tablet PO 01/01/24 21:02 60 mg ONCE ONE Administration Discharge Plan Discharge Clinical Impression: Swelling of joint, knee, left, Arthritis of knee Patient Disposition: Home, Self-Care Instructions: Osteoarthritis (ED), Swollen Knee Joint (ED) Additional Instructions: Recommend follow-up with primary care provider and orthopedic surgeon. Return to the ED immediately for increased swelling, redness, bluish black discoloration, inability to move knee, fever, chills, knee instability, red streaks, calf pain, chest pain, shortness of breath, inability to walk, or any other concerning symptoms. Prescriptions: New prednisone 20 mg tablet 40 mg PO DAILY 5 Days Qty: 10 0RF naproxen 500 mg tablet 500 mg PO BID PRN (Reason: pain) 7 Days Qty: 14 0RF No Action (DME) Knee Support Brace Misc See Rx Instructions .ROUTE .MEDSUPPLY Qty: 1 0RF Rx Instructions: reaction knee brace XXXL mchugh rt knee silver sulfadiazine 1 % cream 1 appl topical BID PRN (Reason: wound healing) Qty: 50 1RF pyridoxine (vitamin B6) 100 mg tablet 100 mg PO DAILY 90 Days Qty: 90 0RF ibuprofen 600 mg tablet 600 mg PO Q6H PRN (Reason: pain) Qty: 20 0RF oxycodone-acetaminophen [Percocet] 5-325 mg tablet 1 tab PO Q4-6H PRN (Reason: pain) Qty: 10 0RF Rx Instructions: narcotic, no driving for 6 hours after taking this medication, may cause drowsiness ondansetron HCl [Zofran] 4 mg tablet 4 mg PO Q8H PRN (Reason: nausea and vomiting) Qty: 14 0RF tamsulosin [Flomax] 0.4 mg capsule 0.4 mg PO DAILY 5 Days Qty: 5 0RF acetaminophen [Tylenol Extra Strength] 500 mg tablet 1,000 mg PO QID PRN (Reason: fever or pain) Qty: 14 0RF ziprasidone HCl 60 mg capsule 60 mg PO BID benztropine 1 mg tablet 1 mg PO BID trazodone 150 mg tablet 150 mg PO BEDTIME Referrals: [facility] [place] Orthopedic Surgeons [Provider Group] (Left knee arthritis and moderate joint effusion. Fell onto knee before swelling. May need MRI) Stand Alone Forms: Work/School Release Interventions: ED Discharge Assessment Last Done: 01/01/24 22:00 Discharge Date/Time: 01/01/24 22:01 Print Language: Bahraini
[2024-01-01 18:56] VITALS: BP 150/76; PULSE 80; RESP 20; TEMP 36.7; O2SAT 97
--- NOTE | 2024-01-01 21:05 | ED.GENADULT ---
HPI - General Adult General Chief complaint: Extremity Injury, Lower Stated complaint: l knee pain Time Seen by Provider: 01/01/24 20:11 Source: patient Mode of arrival: ambulatory Limitations: no limitations History of Present Illness HPI narrative: 53-year-old female with past medical history of kidney stones, anxiety, depression, bipolar, and arthritis of the knee presents to ED for left knee pain. Patient states increased left knee swelling after falling onto knee. Patient denies hitting head. Patient denies any fever, chills, chest pain, or shortness of breath. Related Data Home Medications Medication Instructions Recorded Confirmed benztropine 1 mg tablet 1 mg PO BID 04/09/21 trazodone 150 mg tablet 150 mg PO BEDTIME 04/09/21 ziprasidone HCl 60 mg capsule 60 mg PO BID 04/09/21 Previous Rx's Medication Instructions Recorded leg brace (Knee Support Brace) #1 ea 07/30/20 silver sulfadiazine 1 % topical 1 appl topical BID PRN wound 10/13/20 cream healing #50 grams acetaminophen 500 mg tablet 1,000 mg (2 x 500 mg) PO QID PRN 04/03/21 (Tylenol Extra Strength) fever or pain #14 tabs ondansetron HCl 4 mg tablet 4 mg PO Q8H PRN nausea and 04/03/21 (Zofran) vomiting #14 tabs tamsulosin 0.4 mg capsule (Flomax) 0.4 mg PO DAILY 5 days #5 caps 04/03/21 ibuprofen 600 mg tablet 600 mg PO Q6H PRN pain #20 tabs 04/18/21 oxycodone-acetaminophen 5 mg-325 1 tab PO Q4-6H PRN pain #10 tabs 04/18/21 mg tablet (Percocet) pyridoxine (vitamin B6) 100 mg 100 mg PO DAILY 90 days #90 tabs 07/08/22 tablet naproxen 500 mg tablet 500 mg PO BID PRN pain 7 days #14 01/01/24 tabs prednisone 20 mg tablet 40 mg (2 x 20 mg) PO DAILY 5 days 01/01/24 #10 tabs Allergies Allergy/AdvReac Type Severity Reaction Status Date / Time No Known Allergies Allergy Verified 01/01/24 15:19 Review of Systems Review of Systems: Left knee pain. Yes all other systems are reviewed and are negative PMFSH Past Medical History Medical History (Updated 01/01/24 @ 21:18 by EMILY Gutierrez) Traumatic brain injury Vitamin D deficiency Polyp of cervix Obesity Memory impairment History of attempted suicide Chronic low back pain Anatomical narrow angle of eye Amblyopia of left eye Renal and ureteric calculus Head injury Surgical History (Updated 10/26/23 @ 16:29 by ROBIN Randall) H/O section Family History Family History (Updated 10/26/23 @ 16:29 by ROBIN Randall) Mother Hypertension Social History Social History (Updated 10/26/23 @ 16:31 by ROBIN Randall) Household Members: Children Household Members Other:: Lives with adult daughter and fiance Alcohol intake: never Patient Tobacco Use Status: Never used Tobacco Advance Directives: No Advance Directives Information Provided: No Physical Exam ED Vital Signs: Vital Signs - 24 hr 01/01/24 15:20 01/01/24 18:56 Temperature 97.3 F 98.1 F Pulse Rate 83 80 Respiratory Rate 16 20 Blood Pressure 131/71 150/76 H Pulse Oximetry 97 97 Oxygen Delivery Method Room Air Room Air BMI result Body Mass Index 36.4 Const Orientation/consciousness: oriented to person, oriented to place, oriented to time and patient oriented x3 HENMT Head: Yes normal to inspection, Yes No palpable skull fracture present, Yes normocephalic, Yes atraumatic and No abrasion Eyes General: appearance normal, both eyes and all related structures Neck Neck: Yes normal visual inspection, Yes full ROM, Yes no lymphadenopathy, Yes no meningeal signs, Yes trachea midline, Yes supple, No anterior neck swelling and No tender Chest Chest palpation & inspection: normal inspection of the chest and normal palpation of entire chest wall Resp Effort & Inspection: normal respiratory effort and able to speak in complete sentences Auscultation: clear to auscultation bilaterally Cardio Jugular venous distension: no JVD Heart sounds: S1 normal heart sound present and S2 normal heart sound present GI Inspection: Yes normal to inspection Palpation (GI): Soft to palpation, not firm, nontender, no guarding and not rigid General: No CVA tenderness and Yes no CVA tenderness Back/Spine/Pelvis Back: no CVA tenderness, No CVA tenderness and No back tenderness Skin General skin exam: no rashes or lesions noted, elasticity normal and turgor normal Neuro General: oriented to person, oriented to place, oriented to time, patient oriented x3, gait normal, tone normal, moves all extremities, Normal light touch and pain sensation, no meningeal signs, no focal motor deficits, CN's II-XI intact bilaterally and normal sensation to monofilament Extrem General: Yes normal to inspection, Yes full ROM and Yes capillary refill normal Knee images: 1. Tenderness on palpation. Negative for crepitus, ecchymosis, or erythema. Positive for swelling. Patient has complete range of motion of knee. Popliteal pulses intact. Pedal pulses intact. Motor/neuro/vascular exam of whole extremity intact. Psych Appearance: grossly normal, well kempt and not disheveled Medications Administered Discontinued Medications Generic Name Dose Route Start Last Admin Trade Name Freq PRN Reason Stop Dose Admin Ketorolac Tromethamine 30 mg 01/01/24 21:01 01/01/24 21:28 Ketorolac Tromethamine 30 Mg/Ml Vial IM 01/01/24 21:02 30 mg ONCE ONE Administration Prednisone 60 mg 01/01/24 21:01 01/01/24 21:29 Prednisone 20 Mg Tablet PO 01/01/24 21:02 60 mg ONCE ONE Administration Medical Decision Making Medical Decision Making MDM Narrative: 53-year-old female presents ED for left knee pain and swelling states she fell onto the couple of days ago. Patient states also has history of arthritis in knee. X-ray CT negative for fracture of knee. Shows arthritis and moderate effusion. Presently not suspecting septic knee joint. No need for arthrocentesis. Patient placed in Allan wrap discharged with steroids and pain medication. Patient informed to follow-up with orthopedic surgeon Differential Diagnosis Differential Diagnoses: The differential diagnosis associated with the presentation includes (Osteoarthritis, moderate effusion, cellulitis, fracture, septic joint) Admission/Observation Consideration of admission/observation: Escalation of care including admission/observation considered Independent Interpretation I performed an independent interpretation of an: Plain X-Ray and CT Scan Radiology Impression Discussion of test interpretation with radiology: I have reviewed the radiologist's reading. Independent Historian Clinical information obtained from an independent historian. History obtained from or confirmed by: Other (patient) External Record Review External record reviewed: Other (patient) Prescription Management I considered prescription management with: Pain Medication and Other (steroids) Discharge Plan Discharge Clinical Impression: Swelling of joint, knee, left, Arthritis of knee Patient Disposition: Home, Self-Care Instructions: Osteoarthritis (ED), Swollen Knee Joint (ED) Additional Instructions: Recommend follow-up with primary care provider and orthopedic surgeon. Return to the ED immediately for increased swelling, redness, bluish black discoloration, inability to move knee, fever, chills, knee instability, red streaks, calf pain, chest pain, shortness of breath, inability to walk, or any other concerning symptoms. Prescriptions: New prednisone 20 mg tablet 40 mg PO DAILY 5 Days Qty: 10 0RF naproxen 500 mg tablet 500 mg PO BID PRN (Reason: pain) 7 Days Qty: 14 0RF No Action (DME) Knee Support Brace Misc See Rx Instructions .ROUTE .MEDSUPPLY Qty: 1 0RF Rx Instructions: reaction knee brace XXXL mchugh rt knee silver sulfadiazine 1 % cream 1 appl topical BID PRN (Reason: wound healing) Qty: 50 1RF pyridoxine (vitamin B6) 100 mg tablet 100 mg PO DAILY 90 Days Qty: 90 0RF ibuprofen 600 mg tablet 600 mg PO Q6H PRN (Reason: pain) Qty: 20 0RF oxycodone-acetaminophen [Percocet] 5-325 mg tablet 1 tab PO Q4-6H PRN (Reason: pain) Qty: 10 0RF Rx Instructions: narcotic, no driving for 6 hours after taking this medication, may cause drowsiness ondansetron HCl [Zofran] 4 mg tablet 4 mg PO Q8H PRN (Reason: nausea and vomiting) Qty: 14 0RF tamsulosin [Flomax] 0.4 mg capsule 0.4 mg PO DAILY 5 Days Qty: 5 0RF acetaminophen [Tylenol Extra Strength] 500 mg tablet 1,000 mg PO QID PRN (Reason: fever or pain) Qty: 14 0RF ziprasidone HCl 60 mg capsule 60 mg PO BID benztropine 1 mg tablet 1 mg PO BID trazodone 150 mg tablet 150 mg PO BEDTIME Referrals: [facility] [place] Orthopedic Surgeons [Provider Group] (Left knee arthritis and moderate joint effusion. Fell onto knee before swelling. May need MRI) Stand Alone Forms: Work/School Release Interventions: ED Discharge Assessment Last Done: 01/01/24 22:00 Discharge Date/Time: 01/01/24 22:01 Print Language: Yoruba
[2024-01-01] MEDS: Ketorolac Tromethamine 30 MG/ML VIAL IM (21:28)
[2024-01-01] MEDS: predniSONE 20 MG TABLET 60 MG PO (21:29)
[2024-01-01 22:00] VITALS: BP 00/00; PULSE 0; RESP 0; TEMP -17.7; TEMP 0
== END 2024-01-01 22:01 | disposition home or self-care (01) ==
PROVIDERS: Emergency Provider Internal Medicine; PCP Registered Nurse
DX: M25.462 Effusion, left knee (principal); M17.12 Unilateral primary osteoarthritis, left knee
CPT/HCPCS: 73564; 73700; 96372; 99283; 99284; J1885

== ENCOUNTER 2024-08-06 15:41 | Outpatient (REF) | payer MEDICARE, MEDICAID, SELFPAY ==
--- NOTE | ~2024-08-06 | MM_ITS ---
EXAMINATION: MM SCREENING DIGITAL BREAST TOMOSYNTHESIS, BILATERAL CLINICAL INFORMATION: Screening. Asymptomatic. COMPARISON: Mammography: Comparison is made with available priors TECHNIQUE: Digital breast mammography with tomosynthesis is performed in both the craniocaudal and mediolateral oblique views along with computer-aided detection (CAD). FINDINGS: There are scattered areas of fibroglandular density (ACR BI-RADS breast composition Category b). There are no significant masses, abnormal calcifications, or other abnormalities. MM/MM tomosynthesis screening BI IMPRESSION: No mammographic evidence of malignancy. ASSESSMENT: BI-RADS BI-RADS 1 - Negative RECOMMENDATION: Routine annual mammography screening. 1 year F/U This examination should not preclude the clinical evaluation of a suspicious palpable abnormality. This patient's information was entered into a reminder system with a target due date for their next mammogram. Electronically signed by: Carla England DO 08/19/2024 03:47 PM [facility]
== END 2024-08-06 15:42 | disposition home or self-care (01) ==
LOC: HO.MAMMO 15:41
PROVIDERS: PCP Registered Nurse; Visit Provider Registered Nurse
DX: Z12.31 Encounter for screening mammogram for malignant neoplasm of breast (principal)
CPT/HCPCS: 77063; 77067

== ENCOUNTER → 2024-08-06 16:15 | Outpatient (BNV) | payer MEDICARE, MEDICAID, SELFPAY | PROVIDERS: PCP Registered Nurse; Visit Provider Internal Medicine | DX: Z12.31 Encounter for screening mammogram for malignant neoplasm of breast (principal) | CPT/HCPCS: 77063; 77067 ==

== ENCOUNTER 2025-02-26 10:38 | Outpatient (REF) | payer MEDICARE, MEDICAID, SELFPAY ==
--- OUTSIDE RECORDS SUMMARY | 2025-02-26 11:42 | XMS_ITS | Clinical Summary ---
Author Organization [facility] Address [address] [place] [address] Care Team Providers Care Transformer Tester Name Role Phone Rani Wyatt PA-C Primary Care Provider [phone] Source Comments PLEASE NOTE, if this patient is a minor, it may be UNLAWFUL to discuss sensitive information that is contained in these records (such as FAMILY PLANNING, MENTAL HEALTH or SUBSTANCE ABUSE) with the minor patient's parent or other person without the patient's specific authorization.[facility] Allergies No known active allergies Medications benztropine (COGENTIN) 1 mg tablet Per psych 07/31/2014 Active traZODone (DESYREL) 50 mg tablet Per psych 07/31/2014 Active ziprasidone (GEODON) 60 mg capsule Per psych 07/03/2014 Active ziprasidone (GEODON) 80 mg capsule Per psych 07/03/2014 Active orphenadrine (NORFLEX ER) 100 mg 12 hr tabletIndicatio ns:Lumbalgia Take 1 Tab by mouth 2 (two) times daily. Swallow whole. Do not crush or chew. 40 Tab 0 08/22/2014 Active ibuprofen (ADVIL,MOTRIN) 800 mg tabletIndicatio ns:Lumbalgia Take 1 Tab by mouth 3 (three) times daily as needed for pain. 60 Tab 3 08/22/2014 Active Active Problems No known active problems Social History Tobacco Use Types Packs/Day Years Used Date Smoking Tobacco: Never Assessed Social Connections Answer Date Recorded Social Connections and Isolation 0 06/08/2019 Financial Resource Strain Answer Date R ecorded Financial Resource Strain 0 2018 Stress Answer Date Recorded Stress 0 06/08/2019 Physical Activity Answer Date Recorded Physical Activity 0 06/08/2019 Food Insecurity Answer Date Recorded Food 0 06/08/2019 Transportation Needs Answer Date Record ed Transportation 0 06/08/2019 Housing Stability Answer Date Recorded Housing 0 06/08/2019 Safety and Environment Answer Date Keven rded Safety 0 06/08/2019 Utilities Answer Date Recorded Utilities 0 06/08/2019 Employment Answer Date Recorded Employment 0 06/08/2019 Comments No Sex and Gender Information Value Date Recorded Sex Assigned at Not on file Legal Sex Female 11:36 AM PDT Gender Identity Not on file Sexual Orientation Not on file Last Filed Vital Signs Vital Sign Reading Time Taken Comments Blood Pressure 118/80 08/22/2014 2:42 PM EST Pulse 74 08/22/2014 2:42 PM EST Temperature 36.6 ??C (97.8 ??F) 08/22/2014 2:42 PM ES T Respiratory Rate 14 08/22/2014 2:42 PM EST Oxygen Saturation - - Inhaled Oxygen Concentration - - Weight 90.3 kg (199 lb) 08/22/2014 2:42 PM EST Height 170.2 cm (5' 7 ) 08/22/2014 2:42 PM EST Body Mass Index 31.17 08/22/2014 2:42 PM EST Plan of Treatment Not on file Insurance [place] Care Teams Transformer Tester Relationship Specialty Start Date End Date Rani Wyatt PA-C [address] [place] [address] PCP - General 12/11/18
[2025-02-26 13:55] LABS: Alanine Aminotransferase 10 U/L (0-31); Alkaline Phosphatase 63 U/L (39-117); Anion Gap 13 (12-20); Aspartate Amino Transferase 25 U/L (5-31); Bilirubin Total 0.7 mg/dL (0.0-1.0); Blood Urea Nitrogen 14 mg/dL (9-16); Calcium 8.8 mg/dL (8.4-10.2); Carbon Dioxide 28 mmol/L (22-29); Chloride 104 mmol/L (96-108); Cholesterol 140 mg/dL (<200); Estimated Glomerular Filt Rate > 60; Glucose Random 85 mg/dL (60-115); HDL Cholesterol 70 mg/dL (>40); LDL Cholesterol Calculated 58 mg/dL (<100); Potassium 3.6 mmol/L (3.3-5.1); Sodium 141 mmol/L (135-145); Total Protein 6.4 g/dL (6.5-8.0); Triglycerides 61 mg/dL (<150)
[2025-02-26 13:57] LABS: Estimated Average Glucose 100 mg/dL; Hemoglobin A1c % 5.1 % (<6.0); Total Hemoglobin (HGBA1C) 3236.7742 umol/L
[2025-02-27 07:52] LABS: HBS Num1 29.76 mIU/mL (0-7.99); ~Hepatitis B Surface Antibody REACTIVE (Nonreactive)
== END 2025-02-26 10:39 | disposition home or self-care (01) ==
LOC: HO.HHCL 10:38
PROVIDERS: Visit Provider Registered Nurse
DX: Z00.00 Encounter for general adult medical examination without abnormal findings (principal); Z13.1 Encounter for screening for diabetes mellitus; Z13.6 Encounter for screening for cardiovascular disorders
CPT/HCPCS: 36415; 80053; 80061; 83036; 86706